=== PATIENT | male | born 1985 ===

== ENCOUNTER 2021-02-28 05:43 | Observation (INO) ==
[2021-02-28] MEDS ORDERED: MoRPHine SULFATE 10 MG/ML CARP/VIAL IV STA (06:01)
[2021-02-28] MEDS ORDERED: ONDANSETRON INJ 2 MG/ML 2 ML VIAL IV STA (06:01)
[2021-02-28] MEDS ORDERED: SODIUM CHLORIDE 0.9% 1000ML 1,000 ML IV STA (06:01)
--- NOTE | 2021-02-28 06:07 | Emergency Department Note ---
History of Present Illness General Chief complaint: Abdominal Pain Stated complaint: BACK PAIN Time Seen by Provider: 02/28/21 05:50 Source: patient Mode of arrival: ambulatory Limitations: no limitations History of Present Illness Maximum Pain Intensity: 5 This patient is a 35-year-old male who presents to the emergency department for evaluation of abdominal pain. Patient states that last night, he was playing [employer] games after his had gone to bed and developed some pain in his abdomen. He initially thought this might be some cramping/gas, but states it has become more severe overnight. Pain is in the center of the lower abdomen and in the right lower quadrant. It is worse with any movements. He describes it as a constant aching pain with occasional sharp, stabbing pains. He rates his discomfort a 7/10. He has had normal bowel movements. He denies urinary symptoms, nausea or vomiting. Appetite is decreased this morning but he was able to eat normally yesterday. He has tried Tylenol PM, Pepto-Bismol and Gas-X without relief. Patient additionally reports that he has had some soreness in his back on and off for the past few weeks. He has been able to manage this with stretching and heat but does state it has been worse the past 2 days. He describes this as a soreness on both sides of his lower back. Denies any radiation into the legs, numbness or incontinence. Home Medications Medication Instructions Recorded Confirmed Type valacyclovir 1 gram tablet See Rx Instructions PO .COMPLEX 06/16/19 10/03/19 Rx PRN #10 tab Allergies Allergy/AdvReac Type Severity Reaction Status Date / Time No Known Drug Allergies Allergy Verified 10/03/19 16:06 Past Med/Surg History Medical History No significant past medical history Surgical History History of nasal surgery History of vasectomy Family History Grandmother (Maternal) Peritoneal carcinoma Father Dyslipidemia Mother No problems noted. Brother No problems noted. Daughter No problems noted. Son No problems noted. Denies family history of Colon cancer Ovarian cancer Prostate cancer Myocardial infarction Breast cancer Social History Smoking Status: Never smoker Hx Alcohol Use: Yes Alcohol type: beer, wine and hard liquor Alcohol Intake Frequency Comment: 2-4 / week Hx Substance Use: No Preferred Language: Korean Communication Ability: Effective Visual Impairment: No Limitations Hearing Ability: Normal marital status: Current Living Situation: Spouse and Family Current Living Situation Comment: spouse and 2 kids current occupational status: employed current occupation: teacher Feels Safe at Home: Yes Childhood Exposure to Second-Hand Smoke: No Dental Care, Regularly: Yes Physical Activity Frequency: 1-2 Times per Week Seatbelt Use: always Sunscreen Use: Yes Review of Systems A total of 10 systems reviewed and were otherwise negative Physical Exam Vital Signs Vital Signs - 24 hr 02/28/21 05:46 02/28/21 06:41 Temperature 36.6 C Temperature Source Temporal Artery Scan Pulse Rate 132 H Respiratory Rate 18 Respiratory Effort / Characteristics Non-Labored Respiratory Depth Normal Blood Pressure 128/82 Blood Pressure Mean 97 Pulse Oximetry 98 98 Oxygen Delivery Method Room Air Room Air Sepsis Recent Fever Within 48 Hours No Sepsis New/Unexplained Change in Mental Status No Sepsis Action Taken by Nursing No Action Required VITALS: Vitals are noted on the nurse's note and reviewed by myself. GENERAL: This is a 35-year-old male, in no acute distress, well-developed well- nourished. SKIN: The skin was without rashes. Skin is clammy to touch. EARS: External auditory canals clear, tympanic membranes pearly lezama without erythema or effusion bilaterally. EYES: Pupils equal round and reactive to light and accommodation. MOUTH: Mucous membranes moist. NECK: Supple without nuchal rigidity. No lymphadenopathy. HEART: Regular rate and rhythm without murmurs gallops or rubs. LUNGS: Clear to auscultation bilaterally without wheezes, rales or rhonchi. ABDOMEN: Decreased bowel sounds. Patient with mild tenderness in the right upper quadrant and left lower quadrant, significant tenderness in the right lower quadrant with guarding. NEURO: Patient was alert and oriented to person place and time. Course Reevaluation(s) Reevaluation #1: Care of the patient was signed out to Antoinette Gonzáles PA-C at change of shift. Administered Medications Discontinued Medications Sodium Chloride (Nss 1000ml) 1,000 mls @ 999 mls/hr IV .Q1H1M STA Stop: 02/28/21 07:01 Last Admin: 02/28/21 06:24 Dose: 999 mls/hr Documented by: [id number] Morphine Sulfate (Morphine Sulfate 10 Mg/Ml Carp/Vial) 8 mg IV NOW STA Stop: 02/28/21 06:02 Last Admin: 02/28/21 06:24 Dose: 8 mg Documented by: [id number] Ondansetron HCl (Ondansetron Inj 2 Mg/Ml 2 Ml Vial) 4 mg IV NOW STA Stop: 02/28/21 06:02 Last Admin: 02/28/21 06:23 Dose: 4 mg Documented by: [id number] Medical Decision Making Differential Diagnosis Appendicitis, testicular torsion, infections, diverticulitis, UTI, obstruction, mesenteric ischemia, aortic pathology, inflammatory bowel disease, renal colic, PUD, pancreatitis, biliary pathology, hernia, volvulus, constipation, as well as other pathologies. Home Medications Current Medication List: was personally reviewed by me Laboratory Data Attestation: I reviewed the patient's lab results. Result diagrams: 02/28/21 Unknown 02/28/21 Unknown Lab Results 02/28/21 02/28/21 02/28/21 Range/Units Unknown Unknown Unknown WBC 14.44 H (4.8-10.8) K/uL RBC 4.99 (4.7-6.1) M/uL Hgb 15.7 (14.0-18.0) g/dL Hct 43.6 (42-52) % MCV 87.4 (80-100) fL MCH 31.5 (25-34) pg MCHC 36.0 (32-36) g/dL RDW Std Deviation 42.5 (36.4-46.3) fL RDW Coeff of John 13.2 (11.5-14.5) % Plt Count 219 (130-400) K/uL MPV 11.5 H (7.4-10.4) fL Immature Gran % (Auto) 0.3 % Neut % (Auto) 83.0 % Lymph % (Auto) 7.7 % [place] % (Auto) 7.0 % Eos % (Auto) 1.7 % Baso % (Auto) 0.3 % Neut # (Auto) 11.99 H (1.4-6.5) K/uL Lymph # (Auto) 1.11 L (1.2-3.4) K/uL [place] # (Auto) 1.01 H (0.11-0.59) K/uL Eos # (Auto) 0.25 (0-0.5) K/uL Baso # (Auto) 0.04 (0-0.2) K/uL Immature Gran # (Auto) 0.04 H (0.00-0.02) K/uL Sodium 138 (136-145) mmol/L Potassium 3.9 (3.5-5.1) mmol/L Chloride 106 (98-107) mmol/L Carbon Dioxide 28 (21-32) mmol/L Anion Gap 4.0 (3-11) BUN 13 (7-18) mg/dl Creatinine 0.93 (0.6-1.4) mg/dl Est Cr Clr Drug Dosing 150.3 ml/min Est GFR ( Amer) 122.8 Est GFR (Non-Af Amer) 106.0 BUN/Creatinine Ratio 13.6 (10-20) Glucose 101 H (70-99) mg/dl Calcium 9.5 (8.5-10.1) mg/dl Total Bilirubin 0.8 (0.2-1) mg/dl AST 26 (15-37) U/L ALT 71 (12-78) U/L Alkaline Phosphatase 67 (45-117) U/L Total Protein 7.9 (6.4-8.2) gm/dl Albumin 4.3 (3.4-5.0) gm/dl Globulin 3.6 (2.5-4.0) gm/dl Albumin/Globulin Ratio 1.2 (0.9-2) Lipase 94 (73-393) U/L Urine Color Yellow Urine Appearance Clear (Clear) Urine pH 7.0 (4.5-7.5) Ur Specific [place] 1.024 (1.000-1.030) Urine Protein Negative (Negative) Urine Glucose (UA) Negative (Negative) Urine Ketones Negative (Negative) Urine Blood Negative (Negative) Urine Nitrite Negative (Negative) Urine Bilirubin Negative (Negative) Urine Urobilinogen Negative (Negative) Ur Leukocyte Esterase Negative (Negative) MDM Narrative Continuous monitoring and evaluation advisor: Order was placed for continuous monitoring and evaluation advisor. Patient was placed on the monitoring and evaluation advisor. Patient was noted to be in sinus tachycardia at an initial rate of 130 bpm. The patient is a 35-year-old female who presents today complaining of abdominal pain. Patient is very tender in the right lower quadrant with some guarding noted. He is tachycardic and slightly clammy on initial exam. He was given IV fluids, morphine, Zofran with significant improvement of symptoms. Labs revealed a leukocytosis of 14,000, labs otherwise unremarkable. Urinalysis was not suggestive of infection, no hematuria noted. Care of the patient was signed out to Antoinette Gonzáles PA-C at change of shift pending CT results. Please see her note for patient disposition. Impression & Plan Right lower quadrant abdominal pain, Leukocytosis Discharge Plan Visit Data Chief Complaint: Abdominal Pain Stated Complaint: BACK PAIN ED Provider: Daly Gonzalez ED Midlevel Provider: Antoinette Gonzáles Discharge Problem: Right lower quadrant abdominal pain, Leukocytosis Forms Stand Alone Forms: [employer] Prescriptions Prescriptions: No Action valacyclovir 1 gram tablet See Rx Instructions PO .COMPLEX PRN (Reason: cold sores) Qty: 10 RF: 1 Discharge Problem: Leukocytosis Qualifiers: Leukocytosis type: unspecified Qualified Code(s): D72.829 - Elevated white blood cell count, unspecified
[2021-02-28 06:26] LABS: Basophils # (auto) 0.04 K/uL (0-0.2); Basophils % (auto) 0.3 %; Eosinophils # (auto) 0.25 K/uL (0-0.5); Eosinophils % (auto) 1.7 %; Hematocrit (blood only) 43.6 % (42-52); Hemoglobin 15.7 g/dL (14.0-18.0); Immature Granulocytes # (auto) 0.04 K/uL (0.00-0.02); Immature Granulocytes % (auto) 0.3 %; Lymphocytes # (auto) 1.11 K/uL (1.2-3.4); Lymphocytes % (auto) 7.7 %; Mean Corpuscular Hemoglobin 31.5 pg (25-34); Mean Corpuscular Volume 87.4 fL (80-100); Mean Platelet Volume 11.5 fL (7.4-10.4); Monocytes # (auto) 1.01 K/uL (0.11-0.59); Neutrophils # (auto) 11.99 K/uL (1.4-6.5); Platelet Count 219 K/uL (130-400); RDW Coefficient of Variation 13.2 % (11.5-14.5); RDW Standard Deviation 42.5 fL (36.4-46.3); Red Blood Count 4.99 M/uL (4.7-6.1); White Blood Count 14.44 K/uL (4.8-10.8)
[2021-02-28 06:47] LABS: Albumin Level 4.3 gm/dl (3.4-5.0); BUN Creatinine Ratio 13.6 (10-20); Calcium 9.5 mg/dl (8.5-10.1); Creatinine Clr Calc Pharmacy 150.3 ml/min; Est GFR (African American) 122.8; Potassium 3.9 mmol/L (3.5-5.1)
[2021-02-28 06:50] LABS: Albumin Globulin Ratio 1.2 (0.9-2); Bilirubin,Total 0.8 mg/dl (0.2-1); Globulin 3.6 gm/dl (2.5-4.0); Total Protein 7.9 gm/dl (6.4-8.2)
[2021-02-28 06:58] LABS: Appearance Urine Clear (Clear); Bilirubin Urine Negative (Negative); Blood Urine Negative (Negative); Color Urine Yellow; Glucose Urine UA Negative (Negative); Ketones Urine Negative (Negative); Leukocyte Esterase Urine Negative (Negative); Nitrite Urine Negative (Negative); Protein Urine Negative (Negative); Specific Gravity Urine 1.024 (1.000-1.030); Urobilinogen Urine Negative (Negative)
[2021-02-28] MEDS ORDERED: OPTIRAY 320 100ml IV ONE (07:41)
--- NOTE | 2021-02-28 08:00 | CT Scan Report ---
CT abd pelvis IV con only CLINICAL HISTORY: Right lower quadrant abdominal pain COMPARISON STUDY: None. TECHNIQUE: Patient was scanned in a dynamic helical fashion during the intravenous administration of 90 cc of Optiray 320 A dose lowering technique was utilized adhering to the principles of ALARA. CT DOSE: 978.53 mGy.cm FINDINGS: Lower chest: The heart is normal in size and configuration, without pericardial effusion. The lung ba ses and pleural spaces are clear. Liver: There is hepatic steatosis. No focal masses are visualized. The hepatic and portal veins appea r patent. Gallbladder: Unremarkable. Spleen: Normal in size and attenuation. Pancreas: Unremarkable. Adrenal glands: Unremarkable. Kidneys: There is symmetric renal cortical enhancement. The kidneys are normal in size without hydron ephrosis. Bowel: There are no transition zones to indicate bowel obstruction. There is no evidence of acute div erticulitis. There is mild dilatation of the appendiceal tip which measures 1 cm. There is minimal in filtration of the fat surrounding the appendiceal tip. In the setting of right lower quadrant pain th e findings are viewed as suspicious for early acute tip appendicitis. Peritoneum: There is no intraperitoneal free air or abdominal ascites. There is a small fat-containin g umbilical hernia Vasculature: The abdominal aorta is normal in course and caliber. Adenopathy: None. Pelvic viscera: The bladder, and pelvic viscera are unremarkable. Skeletal structures: No destructive osseous lesions are seen. IMPRESSION: 1. No evidence of bowel obstruction. No evidence of free air 2. Hepatic steatosis 3. Mild dilatation of the appendiceal tip. In the setting of right lower quadrant pain, the findings are viewed as suspicious for an early acute tip appendicitis. Surgical consultation recommended. ACT 112: Negative or not required by law. Electronically signed by: Bud Barone M.D. 02/28/2021 7:59 AM
--- NOTE | 2021-02-28 08:08 | Emergency Department Note ---
ED Visit Note Received the patient in signout from Tati Floyd PA-C at shift change pending CT imaging. Please see her dictation regarding complete physical examination, evaluation, and management up until this point. CT imaging reviewed by myself as noted. This was concerning for dilatation of the appendiceal tip, suspicious for an early acute tip appendicitis. I discussed the findings of the patient at bedside and his on speaker phone. Patient is complaining of some mildly worsening pain and requesting more pain medication. He was given a repeat dose of IV morphine. I did contact Dr. Lam who did agree to see and evaluate the patient. Please see his dictation regarding ongoing management and final disposition of this patient. : Leukocytosis Qualifiers: Leukocytosis type: unspecified Qualified Code(s): D72.829 - Elevated white blood cell count, unspecified
[2021-02-28] MEDS ORDERED: MoRPHine SULFATE 4 MG/ML 1 ML CARP\\VIAL IV STA (08:13)
[2021-02-28 09:26] LABS: Influenza A virus by PCR Negative (Neg); Influenza B virus by PCR Negative (Neg); RSV by PCR Negative (Neg); SARS CoV2 RNA(COVID-19) InHosp NEGATIVE (Negative)
--- NOTE | 2021-02-28 09:54 | Surgery Consultation ---
Date of Consultation February 28, 2021 Assessment & Plan (1) Acute appendicitis: pt is a 35 year-old male who presents to ER with 1 day history RLQ pain, IMP: acute appendicitis, Plan, I recommend to do laparoscopic appendectomy, possible open, D/W benefits,risks and alternatives of the surgery, the risks - infection, bleeding, abscess, injury bowel, bowel obstruction, pt and his understood, they agree with the surgery, I answered all questions, pre-op antibiotic, Present on Admission?: Yes History of Present Illness History of Present Illness History of Present Illness General Chief complaint: Abdominal Pain Stated complaint: BACK PAIN Time Seen by Provider: 02/28/21 05:50 Source: patient Mode of arrival: ambulatory Limitations: no limitations History of Present Illness Maximum Pain Intensity: 5 This patient is a 35-year-old male who presents to the emergency department for evaluation of abdominal pain. Patient states that last night, he was playing some video games after his had gone to bed and developed some pain in his abdomen. He initially thought this might be some cramping/gas, but states it has become more severe overnight. Pain is in the center of the lower abdomen and in the right lower quadrant. It is worse with any movements. He describes it as a constant aching pain with occasional sharp, stabbing pains. He rates his discomfort a 7/10. He has had normal bowel movements. He denies urinary symptoms, nausea or vomiting. Appetite is decreased this morning but he was able to eat normally yesterday. He has tried Tylenol PM, Pepto-Bismol and Gas-X without relief. Patient additionally reports that he has had some soreness in his back on and off for the past few weeks. He has been able to manage this with stretching and heat but does state it has been worse the past 2 days. He describes this as a soreness on both sides of his lower back. Denies any radiation into the legs, numbness or incontinence. I ( Yusuf Lam MD) got a call for consult acute appendicitis, I reviewed pt's H/P, labs, CT scan with pt and his , pt is still have RLQ pain, Home Medications Medication Instructions Recorded Confirmed Type valacyclovir 1 gram tablet See Rx Instructions PO .COMPLEX 06/16/19 10/03/19 Rx PRN #10 tab Allergies Allergy/AdvReac Type Severity Reaction Status Date / Time No Known Drug Allergies Allergy Verified 10/03/19 16:06 Past Med/Surg History Medical History No significant past medical history Surgical History History of nasal surgery History of vasectomy Family History Grandmother (Maternal) Peritoneal carcinoma Father Dyslipidemia Mother No problems noted. Brother No problems noted. Daughter No problems noted. Son No problems noted. Denies family history of Colon cancer Ovarian cancer Prostate cancer Myocardial infarction Breast cancer Social History Smoking Status: Never smoker Hx Alcohol Use: Yes Alcohol type: beer, wine and hard liquor Alcohol Intake Frequency Comment: 2-4 / week Hx Substance Use: No Preferred Language: Burkinan Communication Ability: Effective Visual Impairment: No Limitations Hearing Ability: Normal marital status: Current Living Situation: Spouse and Family Current Living Situation Comment: spouse and 2 kids current occupational status: employed current occupation: teacher Feels Safe at Home: Yes Childhood Exposure to Second-Hand Smoke: No Dental Care, Regularly: Yes Physical Activity Frequency: 1-2 Times per Week Seatbelt Use: always Sunscreen Use: Yes Review of Systems A total of 10 systems reviewed and were otherwise negative Allergies Allergy/AdvReac Type Severity Reaction Status Date / Time No Known Drug Allergies Allergy Verified 02/28/21 08:25 Home Medications Medication Instructions Recorded Confirmed Type valacyclovir 1 gram tablet See Rx Instructions PO .COMPLEX 06/16/19 02/28/21 Rx PRN #10 tab Patient History Medical History No significant past medical history Surgical History History of nasal surgery History of vasectomy Family History Grandmother (Maternal) Peritoneal carcinoma Father Dyslipidemia Mother No problems noted. Brother No problems noted. Daughter No problems noted. Son No problems noted. Denies family history of Colon cancer Ovarian cancer Prostate cancer Myocardial infarction Breast cancer Social History Smoking Status: Never smoker Hx Alcohol Use: Yes Alcohol type: beer, wine and hard liquor Alcohol Intake Frequency Comment: 2-4 / week Hx Substance Use: No Preferred Language: Burkinan Communication Ability: Effective Visual Impairment: No Limitations Hearing Ability: Normal marital status: Current Living Situation: Spouse and Family Current Living Situation Comment: spouse and 2 kids current occupational status: employed current occupation: teacher Feels Safe at Home: Yes Childhood Exposure to Second-Hand Smoke: No Dental Care, Regularly: Yes Physical Activity Frequency: 1-2 Times per Week Seatbelt Use: always Sunscreen Use: Yes Review of Systems Review of Systems: All systems reviewed & are unremarkable except as noted in HPI & below Constitutional: as per Subjective / HPI Eyes: as per Subjective / HPI Ear, Nose, Mouth, Throat: as per Subjective / HPI Respiratory: as per Subjective / HPI Cardiovascular: as per Subjective / HPI Additional Comments: hyperlipidemia Gastrointestinal: as per Subjective / HPI Genitourinary: + as per Subjective / HPI Musculoskeletal: as per Subjective / HPI Integumentary: as per Subjective / HPI Neurologic: as per Subjective / HPI Psychiatric: as per Subjective / HPI Endocrine: as per Subjective / HPI Hematologic / Lymphatic: as per Subjective / HPI Physical Exam Constitutional: WD/WN, vitals as above well developed and well nourished Eyes: PERRL, conjunctivae normal, anicteric sclerae ENMT: external ear and nose normal, oropharynx normal Neck: trachea midline, no thyromegaly Respiratory: normal respiratory effort, lungs clear to auscultation normal respiratory effort Cardiovascular: RRR, no murmur, no edema Rate/Rhythm: regular rate and regular rhythm Gastrointestinal (Abdomen): Percussion/Palpation: + abdomen tender and abdomen soft tenderness at RLQ, no rebound pain, no distend, BS + Musculoskeletal: no cyanosis or clubbing, extremities motor strength 5/5 Skin: no rashes, warm and dry Neurologic: awake Psychiatric: Orientation: alert and oriented x 3 Results & Data ([facility]) Vital Signs (Past 12 Hours) Vital Signs Temp Pulse Pulse Resp BP BP Pulse Ox 02/28/21 08:31 102 H 18 106/73 100 02/28/21 06:41 98 02/28/21 05:46 36.6 C 132 H 18 128/82 98 Laboratory Results Abnormal lab results 02/28/21 02/28/21 Range/Units Unknown Unknown WBC 14.44 H (4.8-10.8) K/uL MPV 11.5 H (7.4-10.4) fL Neut # (Auto) 11.99 H (1.4-6.5) K/uL Lymph # (Auto) 1.11 L (1.2-3.4) K/uL [place] # (Auto) 1.01 H (0.11-0.59) K/uL Immature Gran # (Auto) 0.04 H (0.00-0.02) K/uL Glucose 101 H (70-99) mg/dl Diagnostic Findings CT abd pelvis IV con only CLINICAL HISTORY: Right lower quadrant abdominal pain COMPARISON STUDY: None. TECHNIQUE: Patient was scanned in a dynamic helical fashion during the intravenous administration of 90 cc of Optiray 320 A dose lowering technique was utilized adhering to the principles of ALARA. CT DOSE: 978.53 mGy.cm FINDINGS: Lower chest: The heart is normal in size and configuration, without pericardial effusion. The lung bases and pleural spaces are clear. Liver: There is hepatic steatosis. No focal masses are visualized. The hepatic and portal veins appear patent. Gallbladder: Unremarkable. Spleen: Normal in size and attenuation. Pancreas: Unremarkable. Adrenal glands: Unremarkable. Kidneys: There is symmetric renal cortical enhancement. The kidneys are normal in size without hydronephrosis. Bowel: There are no transition zones to indicate bowel obstruction. There is no evidence of acute diverticulitis. There is mild dilatation of the appendiceal tip which measures 1 cm. There is minimal infiltration of the fat surrounding the appendiceal tip. In the setting of right lower quadrant pain the findings are viewed as suspicious for early acute tip appendicitis. Peritoneum: There is no intraperitoneal free air or abdominal ascites. There is a small fat-containing umbilical hernia Vasculature: The abdominal aorta is normal in course and caliber. Adenopathy: None. Pelvic viscera: The bladder, and pelvic viscera are unremarkable. Skeletal structures: No destructive osseous lesions are seen. IMPRESSION: 1. No evidence of bowel obstruction. No evidence of free air 2. Hepatic steatosis 3. Mild dilatation of the appendiceal tip. In the setting of right lower quadrant pain, the findings are viewed as suspicious for an early acute tip appendicitis. Surgical consultation recommended.
[2021-02-28] MEDS ORDERED: cefOXitin 2,000 MG/60 ML BAG IV STA (09:58)
--- NOTE | 2021-02-28 09:58 | History & Physical Bridge Note ---
Date of Service February 28, 2021 History & Physical Bridge Note I have examined the patient, reviewed the History & Physical and in the interval since the performance of the History & Physical I have noted the following changes of clinical significance: no changes noted
[2021-02-28] MEDS ORDERED: PROPOFOL IV EMULSION 10 MG/ML 20 ML VIAL IV ONE (10:13)
[2021-02-28] MEDS ORDERED: MIDAZOLAM HCL 1 MG/ML 2ML VIAL ONE (10:13)
[2021-02-28] MEDS ORDERED: DEXAMETHASONE SOD INJ 4 MG/ML VIAL ONE (10:13)
[2021-02-28] MEDS ORDERED: LIDOCAINE HCL 2% 2 ML VIAL/AMP(20MG/ML) INFIL ONE (10:13)
[2021-02-28] MEDS ORDERED: ONDANSETRON INJ 2 MG/ML 2 ML VIAL ONE (10:13)
[2021-02-28] MEDS ORDERED: ROCURONIUM BROMIDE 10 MG/ML 5 ML VIAL IV ONE (10:13)
[2021-02-28] MEDS ORDERED: fentaNYL citrate 100 MCG/2 ML VIAL ONE ×2 (10:14→11:06)
[2021-02-28] MEDS ORDERED: BACITRACIN OINT 15 GM TUBE ONE (10:24)
[2021-02-28] MEDS ORDERED: LIDOCAINE HCL 1% 20 ML VIAL ONE (10:25)
[2021-02-28] MEDS ORDERED: BUPIVACAINE 0.5 % 5 MG/1 ML MPF 30ML VIAL ONE (10:25)
[2021-02-28] MEDS ORDERED: SUGAMMADEX SODIUM 200 MG/2 ML VIAL IV ONE (10:26)
--- NOTE | 2021-02-28 10:32 | Anesthesiology Consultation ---
Date of Service February 28, 2021 Assessment & Plan (1) Encounter for pre-operative examination: Chart Review Chart Review: Acceptable Risk for Surgery Consults Requested none ASA [id number] Proposed Anesthesia Anesthesia Type: General Risk / Benefits Reviewed With: PT / POA / Parent / Guardian, Accepts Plan and Informed Consent Obtained History Surgery Operation Date: 02/28/21 09:25 Proposed Procedures p Laparoscopic Appendectomy - Yusuf Lam MD Height/Weight Height: 6 ft 4 in Weight: 109.5 kg Allergies Allergy/AdvReac Type Severity Reaction Status Date / Time No Known Drug Allergies Allergy Verified 02/28/21 08:25 Medications Home Medications Medication Instructions Recorded Confirmed Last Taken valacyclovir 1 gram tablet See Rx Instructions PO .COMPLEX 06/16/19 02/28/21 02/07/21 PRN #10 tab Active Medications Generic Name Dose Route Start Last Admin Trade Name Freq PRN Reason Stop Dose Admin Cefoxitin Sodium 2,000 mg in 60 mls @ 100 mls/hr 02/28/21 09:58 02/28/21 10:11 Mefoxin IV 02/28/21 10:33 100 mls/hr NOW STA Administration NPO Date Last Intake of Fluids: 02/28/21 Time Last Intake of Fluids: 05:00 Date Last Intake of Solids: 02/27/21 Time Last Intake of Solids: 18:00 Past Medical History Medical History No significant past medical history Exercise / Class Metabolic Activity II 4-5 Yardwork/Stairs/Walk up hill Past Family History Family History Grandmother (Maternal) Peritoneal carcinoma Father Dyslipidemia Mother No problems noted. Brother No problems noted. Daughter No problems noted. Son No problems noted. Denies family history of Colon cancer Ovarian cancer Prostate cancer Myocardial infarction Breast cancer Past Surgical History Surgical History History of nasal surgery History of vasectomy Past Anesthesia History No Hx of Anesthesia Complications and No Family Hx of Anesthesia Complications History of PONV No Hx of PONV and No Hx of Motion Sickness Social History Smoking Status: Never smoker Hx Alcohol Use: Yes Alcohol type: beer, wine and hard liquor Hx Substance Use: No Physical Exam Vital Signs Last Vital Signs Temp 99.3 F 02/28/21 10:22 Pulse 100 H 02/28/21 10:22 Resp 18 02/28/21 10:22 BP 120/66 02/28/21 10:22 Pulse Ox 96 02/28/21 10:22 ENMT Mouth: no dentition abnormality Thyromental Distance: > or= 3.5 Finger Breadths Mallampati Class: II Neck normal visual inspection Respiratory normal respiratory effort Auscultation: lungs clear to auscultation bilaterally Cardiovascular Rate/Rhythm: regular rate and regular rhythm Testing Laboratory Results 02/28/21 Unknown 02/28/21 Unknown Urine Color Yellow 02/28/21 Unknown Urine Appearance Clear (Clear) 02/28/21 Unknown Urine pH 7.0 (4.5-7.5) 02/28/21 Unknown Ur Specific [place] 1.024 (1.000-1.030) 02/28/21 Unknown Urine Protein Negative (Negative) 02/28/21 Unknown Urine Glucose (UA) Negative (Negative) 02/28/21 Unknown Urine Ketones Negative (Negative) 02/28/21 Unknown Urine Nitrite Negative (Negative) 02/28/21 Unknown Ur Leukocyte Esterase Negative (Negative) 02/28/21 Unknown
[2021-02-28] MEDS ORDERED: fentaNYL citrate 100 MCG/2 ML VIAL IV PRN (10:33)
[2021-02-28] MEDS ORDERED: ONDANSETRON INJ 2 MG/ML 2 ML VIAL IV PRN ×2 (10:33→13:24)
[2021-02-28] MEDS ORDERED: ePHEDrine sulfate 50 MG/ML AMP IV PRN (10:33)
[2021-02-28] MEDS ORDERED: ATROPINE SULFATE 0.1 MG/ML 10ML SYR IV PRN (10:33)
[2021-02-28] MEDS ORDERED: KETOROLAC 30 MG/ML VIAL ONE (11:01)
--- NOTE | 2021-02-28 11:34 | Post Operative Brief Note ---
Immediate Post Op Note v1 Date of Surgery February 28, 2021 Pre & Post Diagnosis Operation Date: 02/28/21 09:25 Pre-Op Diagnosis: Acute Appendicitis Post-Op Diagnosis: Acute Appendicitis I identified the patient and participated in the time-out.: Yes Procedure Operation Date: 02/28/21 09:25 laparoscopic appendectomy Surgeon Yusuf Lam MD Steward/Stewardess Wine YULIANA Su Estimated Blood Loss 10 Findings Consistent with Post-Op Diagnosis Fluids 1000ml Specimens appendix Anesthesia Type General Complications none Disposition Accompanied Patient To Recovery: Yes Disposition: Recovery Room Overlapping Procedure I was immediately available: during the entire case.
--- NOTE | 2021-02-28 13:14 | Operative Report (OR) ---
DATE OF OPERATION: 02/28/2021 PREOPERATIVE DIAGNOSIS: Acute appendicitis. POSTOPERATIVE DIAGNOSIS: Acute appendicitis. OPERATION: Laparoscopic appendectomy. SURGEON: Yusuf Lam MD. ANESTHESIA: General. CLOCK REPAIRER: Parisa Crawford PA-C. ESTIMATED BLOOD LOSS: About 5 mL. FINDINGS: Acute appendicitis. COMPLICATIONS: None. INDICATIONS FOR THE PROCEDURE: This is a 35-year-old gentleman who presented to ED with 1-day history of right lower quadrant pain. The patient had a CT scan diagnosis of acute appendicitis. I recommended to do laparoscopic appendectomy, possible open. I did talk to the patient and the patient's about the benefit, risk, alternate procedure. I indicated the risks may include but not limited to such as bleeding, infection, injury to the bowel, abscess, bowel obstruction, incisional hernia. The patient understands. He signed informed consent and I answered all questions. DETAILS OF PROCEDURE: After we identified the patient and verified the procedure, we brought the patient to the OR, put the patient in the supine position. The patient received SCD on bilateral legs to prevent DVT. Also, patient received 2 grams of cefoxitin IV for prophylactic antibiotic. The patient received general anesthesia without difficulty. Also, patient received Garcia catheter insertion. Abdomen was prepped and draped in routine sterile fashion. After timeout, I injected local anesthesia by using 1% lidocaine mixed with 0.5% Marcaine just above the umbilicus. Then I made a small incision just above the umbilicus, opened fascia and opened peritoneum under direct vision, put a Bacilio trocar in, connected to CO2 to create pneumoperitoneum, flow rate at 6 liters per minute, pressure not more than 14 mmHg. Once we got a nice pneumoperitoneum, we put the camera in, looked around the abdomen, it shows normal finding on the small bowel and large bowel. At this moment, we put another two 5 mm trocars in the left lower quadrant area, then we mobilized the cecum and found the patient had acute appendicitis, inflammation at the tip of appendix, so we used the grasper to hold the appendix, took down the appendiceal by using the Harmonic, rechecked, no active bleeding. Then I used a 45 mm Endo-ETHAN staple for transection on the base of the appendix, rechecked the staple line, intact with no leak. Then we removed the appendix through the catch bag. Then we reinserted the Bacilio trocar in, connected to CO2 to create pneumoperitoneum, again looked around the abdomen, no active bleeding, no leak on the staple line and then we removed all trocars under direct vision. No active bleeding from the trocar site. The pneumoperitoneum was released. Then we closed the umbilical incision, fascial layer by using 0 Vicryl [id number] x2, closed subcutaneous layer by using 2-0 Vicryl interruptedly, closed skin by using 4-0 continuous running, closed another two 5 mm trocar site of skin only by using 4-0 Vicryl. Then, we put the dressing on. The patient tolerated the procedure well. All instrument, needle and sponge count were correct x2 at the end of the case. The patient was transferred to recovery room in stable condition. After the procedure, I did talk to the patient and the patient's about the OR finding and the procedure we did. The surgical first assistant, Parisa, is necessary for holding the camera, retraction and exposure. I attest to the content of the Intraoperative Record and any orders documented therein. Any exception s are noted below.
--- NOTE | 2021-02-28 13:21 | Anesthesiology Progress Note ---
Date of Service February 28, 2021 Anesthesia Post Procedure Vital Signs Vital Signs: Temp Pulse Pulse Pulse Resp BP BP 02/28/21 13:00 95 H 20 123/71 02/28/21 12:50 98.8 F 98 H 16 107/67 02/28/21 12:40 98 H 16 136/66 02/28/21 12:30 95 H 17 113/63 02/28/21 12:20 90 20 116/62 02/28/21 12:10 91 H 16 116/64 02/28/21 12:01 98.4 F 98 H 12 122/79 02/28/21 10:22 99.3 F 100 H 18 120/66 02/28/21 10:12 76 18 02/28/21 08:31 102 H 18 106/73 02/28/21 06:41 02/28/21 05:46 97.9 F 132 H 18 128/82 Pulse Ox 02/28/21 13:00 94 02/28/21 12:50 94 02/28/21 12:40 94 02/28/21 12:30 94 02/28/21 12:20 97 02/28/21 12:10 97 02/28/21 12:01 97 02/28/21 10:22 96 02/28/21 10:12 98 02/28/21 08:31 100 02/28/21 06:41 98 02/28/21 05:46 98 Pain Intensity Right Upper Abdomen: Pain Intensity: 0 Transfer of Care Handoff Completed per policy Notes Mental Status: alert / awake / arousable and participated in evaluation Patient Amnestic to Procedure: Yes Nausea / Vomiting: adequately controlled Pain: adequately controlled Airway Patency, RR, SpO2: stable & adequate BP & HR: stable & adequate Hydration State: stable & adequate Anesthetic Complications: no major complications apparent and Pt Satisfied with anesthetic care
[2021-02-28] MEDS ORDERED: HYDROmorphone INJ 0.5 MG/0.5 ML SYR IV PRN (13:24)
[2021-02-28] MEDS ORDERED: valACYclovir HCL 500 MG TABLET PO PRN (13:24)
[2021-02-28] MEDS ORDERED: oxyCODONE/ACETAMINOPHEN 5mg/325mg TAB PO ONE (14:24)
[2021-02-28] MEDS ORDERED: IBUPROFEN 600 MG TAB PO PRN (14:41)
[2021-02-28] MEDS ORDERED: ACETAMINOPHEN 325 MG TAB PO PRN (14:41)
[2021-02-28] MEDS: LACTATED RINGER'S 1,000 ML IV SCH (15:33)
[2021-02-28] MEDS: oxyCODONE/ACETAMINOPHEN 5mg/325mg TAB PO PRN (19:31)
[2021-03-01] MEDS: LACTATED RINGER'S 1,000 ML IV SCH (02:37)
[2021-03-01] MEDS: oxyCODONE/ACETAMINOPHEN 5mg/325mg TAB PO PRN ×2 (02:38→09:08)
[2021-03-01 05:27] LABS: Basophils # (auto) 0.01 K/uL (0-0.2); Basophils % (auto) 0.1 %; Eosinophils # (auto) 0.11 K/uL (0-0.5); Hematocrit (blood only) 38.1 % (42-52); Hemoglobin 13.3 g/dL (14.0-18.0); Immature Granulocytes # (auto) 0.02 K/uL (0.00-0.02); Immature Granulocytes % (auto) 0.2 %; Lymphocytes # (auto) 1.52 K/uL (1.2-3.4); Lymphocytes % (auto) 13.1 %; Mean Corpuscular Hemoglobin 30.8 pg (25-34); Mean Corpuscular Hgb Conc 34.9 g/dL (32-36); Mean Corpuscular Volume 88.2 fL (80-100); Mean Platelet Volume 11.3 fL (7.4-10.4); Monocytes # (auto) 1.03 K/uL (0.11-0.59); Monocytes % (auto) 8.9 %; Neutrophils # (auto) 8.88 K/uL (1.4-6.5); Neutrophils % (auto) 76.7 %; Platelet Count 220 K/uL (130-400); RDW Coefficient of Variation 13.1 % (11.5-14.5); RDW Standard Deviation 42.7 fL (36.4-46.3); Red Blood Count 4.32 M/uL (4.7-6.1); White Blood Count 11.57 K/uL (4.8-10.8)
--- NOTE | 2021-03-01 10:37 | Discharge Summary ---
Date of Service March 01, 2021 Admission HPI Per Admitting Provider This patient is a 35-year-old male who presents to the emergency department for evaluation of abdominal pain. Patient states that last night, he was playing some video games after his had gone to bed and developed some pain in his abdomen. He initially thought this might be some cramping/gas, but states it has become more severe overnight. Pain is in the center of the lower abdomen and in the right lower quadrant. It is worse with any movements. He describes it as a constant aching pain with occasional sharp, stabbing pains. He rates his discomfort a 7/10. He has had normal bowel movements. He denies urinary symptoms, nausea or vomiting. Appetite is decreased this morning but he was able to eat normally yesterday. He has tried Tylenol PM, Pepto-Bismol and Gas-X without relief. Patient additionally reports that he has had some soreness in his back on and off for the past few weeks. He has been able to manage this with stretching and heat but does state it has been worse the past 2 days. He describes this as a soreness on both sides of his lower back. Denies any radiation into the legs, numbness or incontinence. I ( Yusuf Lam MD) got a call for consult acute appendicitis, I reviewed pt's H/P, labs, CT scan with pt and his , pt is still have RLQ pain, Home Medications Principal Diagnosis Acute appendicitis Discharge Exam Constitutional WD/WN, vitals as above Respiratory normal respiratory effort; no respiratory distress and no labored breathing Gastrointestinal (Abdomen) Inspection/Auscultation: abdomen normal to inspection and + abdominal surgical incision (covered with dressings, not inspected); abdomen not distended Percussion/Palpation: + abdomen tender (mild at incision sites) and abdomen soft; no guarding and abdomen not rigid Skin no rashes, warm and dry Psychiatric A+Ox3, euthymic affect Discharge Data Allergies Allergy/AdvReac Type Severity Reaction Status Date / Time No Known Drug Allergies Allergy Verified 02/28/21 08:25 Consultations 02/28/21 08:13 Consult General Surgery Stat Procedures Performed Operation Date: 02/28/21 09:25 Actual Procedures p Laparoscopic Appendectomy - Yusuf Lam MD Ordered Studies 02/28/21 06:01 CT abd pelvis IV con only Stat Hospital Course (1) Acute appendicitis: Patient was taken to operating room for laparoscopic appendectomy possible open by Dr. Lam. Patient found to have acute appendicitis without perforation or abscess. Patient tolerated procedure well and was transferred to recovery then to medical/surgical floor for postop care. Diet advanced to clear liquids then as tolerated. PO Percocet as needed for pain. IV cefoxitin was continued for postop antibiotics. activity as tolerated. POD # 1, afebrile, vitals stable, tolerating diet, pain controlled. AMbulated hallway with ease. Patient was discharged home in stable condition. Total Time Total Time Spent Total Time Spent (In Minutes): 20 Total Time Includes: Examination of the Patient, Discharge Planning and Medication Reconciliation Discharge Plan Discharge Items Patient Disposition: Home - Self-Care Reason For Visit: ACUTE APPENDICITIS Discharge Diagnosis: Acute appendicitis Activity: Per Instructions section Non-emergency contact: Surgeon Call non-emergency contact if: you have any medication questions, your pain is not controlled, your pain is worsening, you have a fever, your temperature is above 101, your wound has increased redness, your wound has increased drainage and your wound pain has increased Follow-up/Referrals: Linsey Jackson MD [Primary Care Provider] - Diet: Regular Addtl Attending Provider Instructions: Post-Surgical ~Discharge Instructions Activity Recommendations: - lifting limitation: (25 pounds for 4 weeks), - exercise/sex/sports limit: (nonstrenuous for 2 weeks), - driving or machine use limit: (none for 1 week), - Shower/bathe limit: (march shower beginning Thursday) Diet: - Resume previous diet SPECIAL CARE INSTRUCTIONS: - May shower Thursday. Sponge bath around incisions and wash hair in meantime. On Thursday, remove outer dressings and shower. Let water run over area and pat dry. - Leave steri strips on for one week and then remove. - Call the surgeon's office with any questions or concerns - - (ex. temperature higher than 101 degrees F, excessive bleeding or pain). MEDICATIONS: - Resume previous medications unless instructed otherwise by your surgeon. - May alternate extra strength Tylenol and Ibuprofen as needed for mild pain -650 mg Tylenol every 6 hours as needed - Ibuprofen 600 mg every 6 hours with food - Percocet 1 every 4 hours, as needed for moderate to severe pain FOLLOW UP VISIT: - If not already scheduled, please call the office to schedule a two week follow-up appointment. Office number Pending Studies at Discharge: Yes Stand-Alone Forms: [facility], Smoking Cessation Medications and DC Order Prescriptions: New oxycodone-acetaminophen [Percocet] 5-325 mg tablet 1 tab PO Q4H PRN (Reason: pain) Qty: 10 RF: 0 Continued valacyclovir 1 gram tablet See Rx Instructions PO .COMPLEX PRN (Reason: cold sores) Qty: 10 RF: 1 Discharge Orders: Discharge Order (Routine); Ordered 03/01/21 Ordered By: Parisa Crawford Admission Data Admit Date/Time: 02/28/21 11:40 Attending Provider: Yusuf Lam Admit Provider: Yusuf Lam Primary Care Provider: Linsey Jackson Other Providers: Yusuf Lam
== END 2021-03-01 12:36 | disposition home or self-care (01) ==
LOC: ED 05:43 → OR 10:12 → 3W 11:40 → INTOOBSV 11:40